=== PATIENT | male | born 1965 | race African-American/Black ===

== ENCOUNTER → 2019-12-11 | Outpatient (CLI) | payer MEDICAID ==
[~2019-12-11] MED LIST: ATOR40TA70 MT; CLOP75TA33 MT; CYCL10TA7 MT; GABA-290 MT; ISOS30TA6 MT; LISI2.5T47 MT; METF-416 MT; METO25TA6 MT; NAPR-681 MT; SERT50TA12 MT; TRAZ-251 MT
== END | disposition home or self-care (01) ==
LOC: LAB 10:40
PROVIDERS: ATTEND Specialist
DX: R05 Cough (principal); Z20.828 Contact with and (suspected) exposure to other viral communicable diseases
CPT/HCPCS: C9803; U0003

== ENCOUNTER 2019-12-13 08:37 | Inpatient (IN) | payer MEDICAID ==
[~2019-12-13] VITALS: Ht 177.8 cm; Wt 124.8 kg
[2019-12-13] MEDS ORDERED: FENTANYL CITRATE/PF 50MCG/ML 2ML VIAL ONE (12:51)
[2019-12-13] MEDS ORDERED: IOHEXOL-300 100 ML BOTTLE ONE ×3 (12:52→13:56)
[2019-12-13] MEDS ORDERED: LIDOCAINE HCL 1% 20ML VIAL (Pyxis) INJ ONE ×2 (12:52→13:19)
[2019-12-13] MEDS ORDERED: MIDAZOLAM HCL 2 MG/2 ML VIAL ONE (12:52)
[2019-12-13] MEDS ORDERED: CLOPIDOGREL 75MG TABLET ONE (13:50)
[2019-12-13] MEDS ORDERED: ASPIRIN 325MG TABLET ONE (13:50)
[2019-12-13] MEDS ORDERED: HYDRALAZINE 20MG/ML VIAL ONE (14:08)
[2019-12-13] MEDS ORDERED: ACETAMINOPHEN 325MG TABLET PO PRN (14:15)
[2019-12-13] MEDS ORDERED: ATROPINE SULFATE 1MG/10ML SYR IV PRN (14:15)
[2019-12-13] MEDS ORDERED: ONDANSETRON HCL 4MG/2ML INJ IV PRN (14:15)
[2019-12-13] MEDS ORDERED: HYDRALAZINE 20MG/ML VIAL IV PRN (16:30)
[2019-12-13 17:53] VITALS: BP 159/76
[2019-12-13 17:54] VITALS: BP 159/76
[2019-12-13] MEDS: AMLODIPINE 10MG TABLET PO SCH (18:52)
[2019-12-13] MEDS: LISINOPRIL 5MG TABLET PO SCH (18:52)
[2019-12-13 20:00] VITALS: BP 171/79
[2019-12-13] MEDS: METOPROLOL TARTRATE 25MG TABLET PO SCH (20:34)
[2019-12-13] MEDS ORDERED: ATORVASTATIN CALCIUM 40MG TABLET PO SCH (21:00)
[2019-12-13 22:00] VITALS: BP 160/82
[2019-12-14] VITALS (7 sets, daily range): BP systolic 140–156; BP diastolic 70–90
[2019-12-14 05:16] LABS: CHLORIDE 106 mEq/L (98-107)
[2019-12-14 05:23] LABS: BASOPHILS % 0.5 % (0.0-2.0); EOSINOPHILS % 0.5 % (0.0-5.0); HEMATOCRIT. 40.9 % (42.0-52.0); HEMOGLOBIN. 13.4 g/dL (14.0-18.0); LYMPHOCYTES % 20.9 % (20.0-50.0); MEAN CORPUSCULAR HEMOGLOBIN 24.6 pg (28.0-32.0); MEAN CORPUSCULAR VOLUME 75.2 fL (80.0-94.0); MEAN PLATELET VOLUME 8.2 fl (7.4-10.4); MONOCYTES % 8.6 % (2.0-8.0); NEUTROPHILS % 69.5 % (40.0-76.0); PLATELET 193 x1000/uL (130-400); RED BLOOD CELL COUNT 5.44 mill/uL (4.7-6.1); RED CELL DISTRIBUTION WIDTH 15.6 % (11.6-14.6)
[2019-12-14] MEDS ORDERED: METFORMIN HCL 500MG TABLET PO SCH (07:20)
[2019-12-14] MEDS ORDERED: CLOPIDOGREL 75MG TABLET PO SCH (09:00)
[2019-12-14] MEDS ORDERED: ASPIRIN 81MG EC TABLET PO SCH (09:00)
[2019-12-14] MEDS ORDERED: ASPIRIN 325MG TABLET PO SCH (09:00)
[2019-12-14] MEDS: LISINOPRIL 5MG TABLET PO SCH (09:21)
[2019-12-14] MEDS: METOPROLOL TARTRATE 25MG TABLET PO SCH (09:21)
[2019-12-14] MEDS: AMLODIPINE 10MG TABLET PO SCH (09:21)
== END 2019-12-14 11:13 | disposition home or self-care (01) | DRG 175 ==
LOC: CCL 08:37 → 3WST 08:38
PROVIDERS: ADMIT Specialist; ATTEND Specialist
PROC: 4A023N7 Measurement of Cardiac Sampling and Pressure, Left Heart, Percutaneous Approach (ICD-10-PCS; principal; 2019-12-13)
PROC: 027034Z Dilation of Coronary Artery, One Artery with Drug-eluting Intraluminal Device, Percutaneous Approach (ICD-10-PCS; 2019-12-13)
PROC: B2111ZZ Fluoroscopy of Multiple Coronary Arteries using Low Osmolar Contrast (ICD-10-PCS; 2019-12-13)
PROC: B2151ZZ Fluoroscopy of Left Heart using Low Osmolar Contrast (ICD-10-PCS; 2019-12-13)
DX: I25.110 Atherosclerotic heart disease of native coronary artery with unstable angina pectoris (principal); E11.9 Type 2 diabetes mellitus without complications; E78.5 Hyperlipidemia, unspecified; I10 Essential (primary) hypertension; Z79.02 Long term (current) use of antithrombotics/antiplatelets; Z79.84 Long term (current) use of oral hypoglycemic drugs; Z79.899 Other long term (current) drug therapy
CPT/HCPCS: 36415; 80048; 82962; 85025; 85347; 92928; 93005; 93458; C1760; C1769; C1874; C1887; C1893; J0360; J1644; J2250; J2405; J3010; J3490; Q9967